=== PATIENT | male | born 1980 | race Caucasian/White ===

== ENCOUNTER 2023-07-06 11:16 | Emergency (ER) | payer OTHER, SELFPAY ==
[2023-07-06 11:29] VITALS: BP 121/83; PULSE 82; RESP 16; TEMP 36.6; O2SAT 100
--- NOTE | 2023-07-06 12:00 | ED.HA ---
HPI - Headache General Chief Complaint: Headache Stated Complaint: Headache Source: patient Mode of arrival: ambulatory Limitations: no limitations History of Present Illness HPI Narrative: 43 y/o male presented for c/o pain to face and behind eyebrows. Onset one week. States he feels tender over eyebrows and cannot focus due to the pain. The day after onset, he was seen by pcp and given Rx Augmentin and steroid shot. Taking Tylenol without relief. Denies vision changes, nasal drainage, n/v/d/f/c. Related Data Home Medications Medication Instructions Recorded Confirmed amoxicillin 875 mg-potassium 1 tablet PO BID 07/06/23 07/06/23 clavulanate 125 mg tablet Allergies Allergy/AdvReac Type Severity Reaction Status Date / Time No Known Allergies Allergy Unknown Verified 07/06/23 11:33 Review of Systems Review of Systems: CONSTITUTIONAL: Denies body aches, fever, chills, or sweats. EYES: Denies visual changes, redness, or discharge. ENT: Denies rhinorrhea, congestion, sore throat, or otalgia. CARDIOVASCULAR: Denies chest pain, palpitations, or edema. RESPIRATORY: Denies cough or dyspnea. SKIN: Denies rash, itching, or wounds. MUSCULOSKELETAL: Denies back pain, joint pain, or myalgia. NEUROLOGIC: reports headache, Denies numbness, tingling, or weakness. All systems reviewed & are unremarkable except as noted in HPI and below PMFSH Past Medical History Medical History (Updated 07/06/23 @ 12:18 by Lauren Montano APRN) Gastroesophageal reflux disease with esophagitis Family History Family History Mother Patient's mother is in good health Father Patient's father is in good health Grandparent Carcinoma of colon Social History Social History Smoking status: Former smoker Smoking end date: 06/02/02 Alcohol intake: current Comments At time of signature, I have reviewed and agree with nursing past medical, surgical, social and family history unless otherwise noted. Please see nursing chart for further information. There is no relevant family history pertinent to the presenting complaint Exam Narrative: GENERAL: Well-appearing HEAD: Normocephalic, atraumatic. EYES: EOMI. No redness or drainage. Conjunctivae normal. ENT: Mucous membranes pink and moist. Tender over frontal sinuses. No rhinorrhea. TMs normal bilaterally. Throat normal. Uvula midline. NECK: Normal AROM. Supple. No lymphadenopathy. CHEST: No respiratory distress. Clear to auscultation. HEART: Regular rate and rhythm. No murmur appreciated. Normal peripheral pulses. SKIN: Warm, dry, no rash. Capillary refill normal. Normal skin turgor. NEURO: No focal deficits. Alert and oriented x3. Gait steady. PSYCH: Normal affect. Course Course Emergency Course: Patient is aware of diagnosis, understands and agrees to treatment plan. Anticipatory guidance given. Patient agrees to follow-up as directed and is aware of reasons to seek care at the emergency department. Portions of this record may have been created with voice recognition software Level of Care: Express Care Visit Vital Signs Vital signs: Vital Signs Temperature 97.8 F 07/06/23 11:29 Pulse Rate 82 07/06/23 11:29 Respiratory Rate 16 07/06/23 11:29 Blood Pressure 121/83 07/06/23 11:29 Pulse Oximetry 100 07/06/23 11:29 Temperature 97.8 F 07/06/23 11:29 Pulse Rate 82 07/06/23 11:29 Respiratory Rate 16 07/06/23 11:29 Blood Pressure 121/83 07/06/23 11:29 Pulse Oximetry 100 07/06/23 11:29 MDM - Headache MDM Narrative Medical decision making narrative: Discussed physical exam findings. Pt will continue abx. Advised supportive measures and signs/symptoms to go to the ER. Pt is appropriate for outpt treatment and f/u. Differential Diagnosis Differential diagnosis: Likely migraine, tension headache, headache, sinus
== END 2023-07-06 12:17 | disposition home or self-care (01) ==
PROVIDERS: Emergency Provider Nurse Practitioner Family; PCP Family Medicine
DX: R51.9 Headache, unspecified (principal); K21.00 Gastro-esophageal reflux disease with esophagitis, without bleeding; Z87.891 Personal history of nicotine dependence
CPT/HCPCS: 99213; G0463

== ENCOUNTER → 2023-07-09 08:45 | Outpatient (CLI) | payer OTHER, SELFPAY ==
--- NOTE | ~2023-07-09 | CT_ITS ---
EXAMINATION: CT sinus wo con DATE: 07/09/2023 08:55 INDICATION: Acute recurrent frontal sinusitis TECHNIQUE: Computed tomography (CT) of the paranasal sinuses was performed without intravenous contra st. The dose-length product (DLP) was 406.70 mGy-cm. Iterative reconstruction was used. COMPARISON: None FINDINGS: There is normal development and pneumatization of the paranasal sinuses. There is mild-to-m oderate mucosal thickening of the left frontal sinus. There is mild mucosal thickening anteriorly of the ethmoidal air cells on the left. There is near complete opacification of the left maxillary sinus . There is mild to moderate mucosal thickening of the right maxillary sinus. The sphenoid sinuses are clear. The mastoid air cells are well aerated. The bilateral ostiomeatal complexes are occluded. Vis ualized soft tissues are unremarkable. IMPRESSION: 1. Sinus disease as detailed above. Reviewed, dictated and finalized at location B. [facility]
== END ==
PROVIDERS: PCP Family Medicine; Visit Provider Family Medicine
DX: J01.11 Acute recurrent frontal sinusitis (principal)
CPT/HCPCS: 70486

== ENCOUNTER 2023-07-23 08:00 | Emergency (ER) | payer OTHER, SELFPAY ==
[2023-07-23 08:09] VITALS: BP 115/82; PULSE 87; RESP 16; TEMP 36.5; O2SAT 98
--- NOTE | 2023-07-23 08:17 | ED.URI ---
HPI - URI/Sore Throat General Chief Complaint: Upper Respiratory Infection Stated Complaint: SORE THROAT Time Seen by Provider: 07/23/23 08:17 Source: patient Mode of arrival: ambulatory Limitations: no limitations History of Present Illness HPI Narrative: 43-year-old male presents with complaint of sore throat for 4 days. States ?normally with, in but throat seems really bad and leaving for [place] today. ?Afebrile. Eyes nausea vomiting diarrhea. No known exposure to strep throat. All systems reviewed and negative except as noted above. Related Data Home Medications Medication Instructions Recorded Confirmed omeprazole 40 mg capsule,delayed 40 mg PO DAILY 07/23/23 07/23/23 release Allergies Allergy/AdvReac Type Severity Reaction Status Date / Time No Known Allergies Allergy Unknown Verified 07/23/23 08:14 Review of Systems Review of Systems: CONSTITUTIONAL: Denies fever, chills, or sweats. EYES: Denies visual changes, redness, or discharge. ENT: Denies rhinorrhea, congestion. Reports sore throat. Denies otalgia. CARDIOVASCULAR: Denies chest pain, palpitations, or edema. RESPIRATORY: Denies cough or dyspnea. GASTROINTESTINAL: Denies abdominal pain, nausea, vomiting, or diarrhea. GENITOURINARY: Denies dysuria or hematuria. SKIN: Denies rash or itching. MUSCULOSKELETAL: Denies back pain, joint pain, or myalgia. NEUROLOGIC: Denies headache, numbness, or weakness. PSYCHIATRIC: Denies anxiety or depression. All other systems reviewed are negative, except as documented in HPI. [facility] Past Medical History Medical History (Updated 07/23/23 @ 08:26 by Camryn Jolley NP) Gastroesophageal reflux disease with esophagitis Family History Family History Mother Patient's mother is in good health Father Patient's father is in good health Grandparent Carcinoma of colon Social History Social History Smoking status: Former smoker Smoking end date: 06/02/02 Alcohol intake: current Comments At time of signature, agree with nursing past medical, surgical, social and family history. There is no relevant family history pertinent to the presenting complaint. Exam Narrative: GENERAL: This is a well-nourished, well-developed patient, in no apparent distress. HEAD: normocephalic, atraumatic. EYES: PERRL. Sclera clear/white. Vision is grossly intact. EARS: External ears normal, auditory canals clear and without drainage, TMs normal without perforation. Hearing grossly intact. NOSE: External nose normal with no obvious nasal discharge, nares without redness, no rhinorrhea. THROAT: Mucous membranes moist, erythematous with mild swelling. No exudates or tonsillar pose swelling. NECK: Neck supple, non-tender without lymphadenopathy, masses or thyromegaly. CARDIOVASCULAR: Regular rate and rhythm without murmurs, gallops, or rubs. RESPIRATORY: Clear to auscultation. Breath sounds equal bilaterally. No wheezes, rales, or rhonchi. SKIN: warm, Dry, intact with no suspicious lesions or rash, good texture and turgor. NEURO: awake, alert, and oriented to person, place and time. There were no obvious focal neurologic abnormalities. EXTREMITIES: No joint tenderness, effusion, or edema noted. Course Course Level of Care: Express Care Visit Vital Signs Vital signs: Vital Signs Temperature 36.5 C 07/23/23 08:09 Pulse Rate 87 07/23/23 08:09 Respiratory Rate 16 07/23/23 08:09 Blood Pressure 115/82 07/23/23 08:09 Pulse Oximetry 98 07/23/23 08:09 Temperature 36.5 C 07/23/23 08:09 Pulse Rate 87 07/23/23 08:09 Respiratory Rate 16 07/23/23 08:09 Blood Pressure 115/82 07/23/23 08:09 Pulse Oximetry 98 07/23/23 08:09 Oxygen Delivery Room Air 07/23/23 08:10 Reviewed MDM - URI/Sore Throat MDM Narrative Medical decision making narrative: Patient is aware of d
== END 2023-07-23 08:28 | disposition home or self-care (01) ==
PROVIDERS: Emergency Provider Nurse Practitioner Family; PCP Family Medicine
DX: J02.9 Acute pharyngitis, unspecified (principal); Z87.891 Personal history of nicotine dependence; K21.9 Gastro-esophageal reflux disease without esophagitis
CPT/HCPCS: 87081; 87880; 99213; G0463

== ENCOUNTER 2023-08-07 08:21 | Emergency (ER) | payer OTHER, SELFPAY ==
--- NOTE | 2023-08-07 08:28 | ED.EAR ---
HPI - Ear Problem General Chief complaint: Ear Stated complaint: Ear Infection Time Seen by Provider: 08/07/23 08:28 Source: patient Mode of arrival: ambulatory Limitations: no limitations History of Present Illness HPI Narrative: Patient is a 43-year-old male who presents with right ear pain and pressure that started yesterday. Patient reports mild cough and congestion since Friday. Has been taking Tylenol but nothing else. Denies any fever, chills, nausea, vomiting, diarrhea. MD Complaint: ear pain Related Data Home Medications Medication Instructions Recorded Confirmed omeprazole 40 mg capsule,delayed 40 mg PO DAILY 07/23/23 08/07/23 release Allergies Allergy/AdvReac Type Severity Reaction Status Date / Time No Known Allergies Allergy Unknown Verified 08/07/23 08:31 Review of Systems Review of Systems: All systems reviewed & are unremarkable except as noted in HPI and below Constitutional: Constitutional: Denies body ache(s), Denies chills, Denies fever(s), Denies headache(s) and Denies malaise Eyes: Eyes: Denies blurry vision, Denies eye discharge and Denies irritation ENT: Reports otalgia, Denies headache(s), Reports nasal congestion, Denies nasal discharge and Denies sore throat Cardiovascular: Cardiovascular: Denies chest pain, Denies edema, Denies palpitations and Denies dyspnea on exertion Respiratory: Respiratory: Reports cough and Denies dyspnea on exertion Gastrointestinal: Gastrointestinal: Denies abdominal pain, Denies diarrhea, Denies nausea and Denies vomiting Musculoskeletal: Musculoskeletal: Denies back pain, Denies arthralgias and Denies muscle weakness Integumentary/Breasts: Skin/Breast: Denies pruritus and Denies rash Neurologic: Denies headache(s) Psychiatric: Psychiatric: Reports no additional psychiatric complaints Endocrine: Endocrine: Denies palpitations PMFSH Past Medical History Medical History Gastroesophageal reflux disease with esophagitis Family History Family History Mother Patient's mother is in good health Father Patient's father is in good health Grandparent Carcinoma of colon Social History Social History Smoking status: Former smoker Smoking end date: 06/02/02 Alcohol intake: current Comments At time of signature, agree with nursing past medical, surgical, social and family history. There is no relevant family history pertinent to the presenting complaint? Exam Const: General: cooperative, healthy appearing, no acute distress and well nourished Nutritional Appearance: well nourished Orientation/consciousness: patient oriented x3 Limitations: no limitations HENMT: Head: normal to inspection, normocephalic and atraumatic Ears: hearing grossly normal bilaterally, EAC's normal, no periauricular adenopathy and TM abnormal wth effusion serous on the right Face/Nose/Sinus: Normal external nose present, Normal nares present, Normal nasal mucous membranes and turbinates present, No nasal discharge present, normal facial exam and sinuses nontender Face and sinus: normal facial exam and sinuses nontender Mouth: Yes Normal oral and palatal mucosa present, Yes lip normal, Yes tongue normal and Yes moist mucous membranes Throat: posterior oropharynx normal, tonsils normal and uvula midline Eyes: General: appearance normal, both eyes and all related structures Alignment and Position: alignment normal and position normal Eyelids: eyelids normal Pupils: Equal, round and reactive pupils present EOM: EOMs intact bilaterally Neck: Neck: normal visual inspection, full ROM, no lymphadenopathy and supple Chest: Chest palpation & inspection: normal inspection of the chest Resp: Effort & Inspection: normal respiratory effort and able to speak in complete sentences Auscultation: clear to auscult
[2023-08-07 08:34] VITALS: BP 125/77; PULSE 87; RESP 16; TEMP 36.6; O2SAT 99
== END 2023-08-07 09:00 | disposition home or self-care (01) ==
PROVIDERS: Emergency Provider Nurse Practitioner Family; PCP Family Medicine
DX: H65.01 Acute serous otitis media, right ear (principal); Z87.891 Personal history of nicotine dependence; K21.00 Gastro-esophageal reflux disease with esophagitis, without bleeding
CPT/HCPCS: 99211; G0463

== ENCOUNTER 2024-10-24 12:32 | Emergency (ER) | payer SELFPAY ==
[2024-10-24 12:40] VITALS: BP 130/84; PULSE 66; RESP 16; TEMP 36.5; O2SAT 100
--- NOTE | 2024-10-24 13:08 | ED.SKABFB ---
HPI - Skin/Abscess/Foreign Bdy General Chief complaint: Skin/Abscess/Foreign Body Stated complaint: Poison Makenna Time Seen by Provider: 10/24/24 13:08 Source: patient Mode of arrival: ambulatory Limitations: no limitations History of Present Illness HPI narrative: 44-year-old male presents with complaint of poison makenna rash for 1 week. Complaint of itching. Applying calamine lotion without relief. All systems reviewed and negative except as noted above. Related Data Home Medications ?Medication ?Instructions ?Recorded ?Confirmed ?Last Taken ?Type omeprazole 20 mg capsule,delayed mg 10/24/24 Unknown History release Allergies Allergy/AdvReac Type Severity Reaction Status Date / Time No Known Allergies Allergy Unknown Verified 10/24/24 12:35 Review of Systems Review of Systems: CONSTITUTIONAL: Denies fever, chills, or sweats. EYES: Denies visual changes, redness, or discharge. ENT: Denies rhinorrhea, congestion, sore throat, or otalgia. CARDIOVASCULAR: Denies chest pain, palpitations, or edema. RESPIRATORY: Denies cough or dyspnea. GASTROINTESTINAL: Denies abdominal pain, nausea, vomiting, or diarrhea. GENITOURINARY: Denies dysuria or hematuria. SKIN: Reports poison makenna rash with itching to bilateral arms and thighs. MUSCULOSKELETAL: Denies back pain, joint pain, or myalgia. NEUROLOGIC: Denies headache, numbness, or weakness. PSYCHIATRIC: Denies anxiety or depression. All other systems reviewed are negative, except as documented in HPI. PMFSH Past Medical History Medical History Gastroesophageal reflux disease with esophagitis Family History Family History Mother Patient's mother is in good health Father Patient's father is in good health Grandparent Carcinoma of colon Social History Social History Smoking status: Former smoker Smoking end date: 06/02/02 Alcohol intake: current Comments At time of signature, agree with nursing past medical, surgical, social and family history. There is no relevant family history pertinent to the presenting complaint. Exam Narrative: GENERAL: This is a well-nourished, well-developed patient, in no apparent distress. HEAD: normocephalic, atraumatic. EYES: PERRL. Sclera clear/white. Vision is grossly intact. EARS: External ears normal, auditory canals clear and without drainage, TMs normal without perforation. Hearing grossly intact. NOSE: External nose normal with no obvious nasal discharge, nares without redness, no rhinorrhea. THROAT: Mucous membranes moist, posterior pharynx clear. NECK: Neck supple, non-tender without lymphadenopathy, masses or thyromegaly. CARDIOVASCULAR: Regular rate and rhythm without murmurs, gallops, or rubs. RESPIRATORY: Clear to auscultation. Breath sounds equal bilaterally. No wheezes, rales, or rhonchi. SKIN: warm, Dry, intact with, good texture and turgor. Erythematous fascicular rash to left hand left forearm, bilateral inner thigh NEURO: awake, alert, and oriented to person, place and time. There were no obvious focal neurologic abnormalities. EXTREMITIES: No joint tenderness, effusion, or edema noted. Course Course Level of Care: Express Care Visit Vital Signs Vital signs: Vital Signs Temperature 36.5 C 10/24/24 12:40 Pulse Rate 66 10/24/24 12:40 Respiratory Rate 16 10/24/24 12:40 Blood Pressure 130/84 10/24/24 12:40 Pulse Oximetry 100 10/24/24 12:40 Temperature 36.5 C 10/24/24 12:40 Pulse Rate 66 10/24/24 12:40 Respiratory Rate 16 10/24/24 12:40 Blood Pressure 130/84 10/24/24 12:40 Pulse Oximetry 100 10/24/24 12:40 Reviewed MDM - Skin/Abscess/Foreign Bdy MDM Narrative Medical decision making narrative: Will treat poison makenna rash with prednisone taper and triamcinolone. Recommend a daily antihistamine. Patient is well-appearing, nontoxic. Discharge Plan Discharge Clinical Impression: Dermatitis due to plants, including poison makenna, sumac, and oak Patient Disposition: Home Condition: Stable Instructions: Poison Makenna (ED) Additional Instructions: Take prednisone taper as prescribed. Apply steroid cream sparingly to affected area. Take a antihistamine daily such as Claritin or Zyrtec. Follow-up with your primary care physician if not improving. Patient Language: Albanian Prescriptions: New prednisone 10 mg tablets,dose pack See Taper PO DAILY 12 Days Qty: 42 0RF Taper: Prednisone Taper from 60 mg;12 days 60 mg DAILY for 2 Days and 0 Hour 50 mg DAILY for 2 Days and 0 Hour 40 mg DAILY for 2 Days and 0 Hour 30 mg DAILY for 2 Days and 0 Hour 20 mg DAILY for 2 Days and 0 Hour 10 mg DAILY for 2 Days and 0 Hour triamcinolone acetonide 0.1 % cream 1 applic topical BID Qty: 30 0RF No Action omeprazole 20 mg capsule,delayed release(/EC) Follow-up/Referrals: Razia,Prince De Santiago MD [Primary Care Provider] - Time of Disposition: 13:19
== END 2024-10-24 13:21 | disposition home or self-care (01) ==
PROVIDERS: Emergency Provider Nurse Practitioner Family; PCP Family Medicine
DX: L25.5 Unspecified contact dermatitis due to plants, except food (principal); K21.00 Gastro-esophageal reflux disease with esophagitis, without bleeding; Z87.891 Personal history of nicotine dependence
CPT/HCPCS: 99213; G0463